=== PATIENT | female | born 1970 ===

== ENCOUNTER → 2020-04-26 | Outpatient (CLI) | payer BC ==
[2020-04-29 08:51] LABS: HPV 16 Negative (Negative); HPV 18 Negative (Negative); HPV OTHER HR TYPES Negative (Negative)
== END | disposition home or self-care (01) ==
LOC: LAB 09:21 → LAB SHORT 09:21
PROVIDERS: Advanced Practice Midwife
DX: Z01.419 Encounter for gynecological examination (general) (routine) without abnormal findings (principal)
CPT/HCPCS: 87624; G0123

== ENCOUNTER → 2020-05-10 | Outpatient (CLI) | payer BC ==
[2020-05-12 03:08] LABS: CHLAMYDIA TRACHOMATIS, NAA Negative (Negative)
== END | disposition home or self-care (01) ==
LOC: LAB 14:06
PROVIDERS: Advanced Practice Midwife
DX: Z30.9 Encounter for contraceptive management, unspecified (principal)
CPT/HCPCS: 87491; 87591

== ENCOUNTER → 2021-09-05 | Outpatient (CLI) | payer BC | LOC: LAB SHORT 15:14 → LAB 15:14 | DX: N84.1 Polyp of cervix uteri (principal) | CPT/HCPCS: 88305 ==

== ENCOUNTER → 2022-09-12 | Outpatient (CLI) | payer BC | LOC: LAB SHORT 11:44 → PLD 11:44 | DX: D48.5 Neoplasm of uncertain behavior of skin (principal) | CPT/HCPCS: 88305 ==